=== PATIENT | male | born 1955 | race African-American/Black ===

== ENCOUNTER → 2018-12-11 09:52 | Outpatient (CLI) | payer OTHER, SELFPAY ==
--- NOTE | 2018-12-11 | DI.RAD.S_ITS ---
PROCEDURE: XR CHEST 2V INDICATIONS: shortness of breathe TECHNIQUE: 2 views of the chest were acquired. COMPARISON: None. FINDINGS: Surgical changes and devices: None. Lungs and pleura: Lungs are clear. No pleural effusions or pneumothorax. Mediastinum: Mediastinal contours are normal. Heart size is normal. Bones and chest wall: No suspicious bony abnormalities. Soft tissues appear unremarkable. IMPRESSION: No acute cardiopulmonary disease. Dictated by: Jason Rubin M.D. on 12/11/2018 at 11:07 Approved by: Jason Rubin M.D. on 12/11/2018 at 11:15
== END ==
LOC: RAD 10:08
PROVIDERS: Visit Provider Nurse Practitioner
DX: R06.02 Shortness of breath (principal)
CPT/HCPCS: 71046

== ENCOUNTER 2021-03-11 12:20 | Emergency (ER) | payer OTHER, SELFPAY ==
[2021-03-11] VITALS (42 sets, daily range): BP systolic 124–200; BP diastolic 61–107; PULSE 84–120; RESP 17–48; TEMP 36.8–37; O2SAT 82–100
--- NOTE | 2021-03-11 12:38 | ED.GENADULT ---
HPI - General Adult <Cabrera Jha DO - Last Filed: 03/12/21 07:06> General Chief complaint: Shortness of Breath/Dyspnea Stated complaint: SOB Time Seen by Provider: 03/11/21 12:31 Source: patient Mode of arrival: EMS History of Present Illness HPI narrative: Patient is a 65-year-old male. History of COPD and also has been. Not on home oxygen at baseline who states that last evening he had a relatively sudden onset of shortness of breath. No chest pain. Symptoms worsened overnight. He contacted his girlfriend this morning who contacted EMS. He did receive nebulizers prior to arrival. Was hypoxic to the upper 80s/low 90s on room air when EMS arrived and was in the upper 90s while receiving the DuoNeb in route. Patient denies any lower extremity swelling. No abdominal pain. No recent travel. No cough. Related Data Allergies Allergy/AdvReac Type Severity Reaction Status Date / Time No Known Drug Allergies Allergy Verified 03/11/21 12:39 Review of Systems <DO Ania Troy Last Filed: 03/12/21 07:06> Constitutional Constitutional: Denies fever(s) and Denies headache(s) ENT Ears, Nose, Mouth, and Throat: Denies headache(s) Cardiovascular Cardiovascular: Denies chest pain Respiratory Respiratory: Reports as per HPI Gastrointestinal Gastrointestinal: Reports system reviewed and no additional complaints, except as documented Genitourinary Genitourinary: Reports system reviewed and no additional complaints, except as documented Musculoskeletal Musculoskeletal: Reports system reviewed and no additional complaints, except as documented and Reports as per HPI Integumentary/Breasts Skin/Breast: Reports system reviewed and no additional complaints, except as documented Neurologic Neurologic: Denies headache(s) Endocrine Endocrine: Reports system reviewed and no additional complaints, except as documented Hematologic/Lymphatic On Anticoagulants: No Allergic/Immunologic Allergic/Immunologic: Reports system reviewed and no additional complaints, except as documented Patient History <DO Ania Troy Last Filed: 03/12/21 07:06> Medical History Asthma COPD (chronic obstructive pulmonary disease) Social History (Updated 03/11/21 @ 14:03 by Cabrera Jha DO) lives independently: Yes Exam <DO Ania Troy Last Filed: 03/12/21 07:06> Initial Vital Signs Initial Vital Signs: Vital Signs Temperature 98.6 F 03/11/21 12:20 Pulse Rate 120 H 03/11/21 12:20 Respiratory Rate 36 H 03/11/21 12:20 Blood Pressure 200/107 H 03/11/21 12:20 Pulse Oximetry 82 L 03/11/21 12:20 Const General: cooperative and ill appearing [facility] Head: normal to inspection and normocephalic Eyes General: appearance normal, both eyes and all related structures Resp Effort & Inspection: labored, respiratory distress, no retractions and tachypneic Auscultation: rales and wheezes Cardio Rate: tachycardic Rhythm: regular rhythm GI Palpation: soft Skin General: no rashes or lesions noted Neuro General: patient alert, patient awake, patient oriented x3 and moves all extremities Extrem General: normal to inspection and capillary refill normal Psych Appearance: grossly normal <Geri Espinoza DO - Last Filed: 03/12/21 03:29> Initial Vital Signs Initial Vital Signs: Vital Signs Temperature 98.6 F 03/11/21 12:20 Pulse Rate 120 H 03/11/21 12:20 Respiratory Rate 36 H 03/11/21 12:20 Blood Pressure 200/107 H 03/11/21 12:20 Pulse Oximetry 82 L 03/11/21 12:20 Course <Cabrera Jha DO - Last Filed: 03/12/21 07:06> Orders Ordered: Discontinued Medications Albuterol (Albuterol 2.5 Mg/3 Ml Neb (Adult)) 20 mg INH NOW ONE Stop: 03/11/21 12:43 Last Admin: 03/11/21 13:56 Dose: 20 mg Documented by: AGUSTINA Albuterol/Ipratropium (Albuterol/Ipratropium 3 Ml Ampul) 3 ml INH Q20M [facility] Stop: 03/11/21 14:26 Last Admin: 03/11/21 19:03 Dose: Not Given Documented by: Admin: 03/11/21 19:02 Dose: Not Given Documented by: Admin: 03/11/21 13:58 Dose: 3 ml Documented by: AGUSTINA Albuterol/Ipratropium (Albuterol/Ipratropium 3 Ml Ampul) 3 ml INH NOW ONE Stop: 03/11/21 20:59 Last Admin: 03/11/21 21:00 Dose: 3 ml Documented by: JUAN Aspirin (Aspirin 325 Mg Tablet) 325 mg PO NOW ONE Stop: 03/11/21 13:45 Last Admin: 03/11/21 14:03 Dose: 325 mg Documented by: ENRIQUE Clopidogrel Bisulfate (Clopidogrel 75 Mg Tablet) 300 mg PO NOW ONE Stop: 03/11/21 17:59 Last Admin: 03/11/21 18:07 Dose: 300 mg Documented by: RULA Furosemide (Furosemide 40 Mg/4 Ml Vial) 40 mg IV NOW ONE Stop: 03/11/21 13:44 Last Admin: 03/11/21 13:49 Dose: 40 mg Documented by: ENRIQUE Furosemide (Furosemide 40 Mg/4 Ml Vial) 40 mg IV NOW ONE Stop: 03/11/21 20:58 Last Admin: 03/11/21 21:08 Dose: 40 mg Documented by: JC Heparin Sodium (Porcine) (Heparin 5,000 Unit/Ml Vial) 5,000 unit IV NOW ONE Stop: 03/11/21 13:44 Last Admin: 03/11/21 13:49 Dose: 5,000 unit Documented by: ENRIQUE Sodium Chloride (Normal Saline 0.9%) 1,000 mls @ 100 mls/hr IV CONT [facility] Last Infusion: 03/11/21 16:53 Dose: 100 mls/hr Documented by: Infusion: 03/11/21 14:30 Dose: 20 mls/hr Documented by: Admin: 03/11/21 13:00 Dose: 100 mls/hr Documented by: RONALD Magnesium Sulfate (Magnesium Sulfate) 2 gm in 50 mls @ 25 mls/hr IV NOW ONE Stop: 03/11/21 14:38 Last Infusion: 03/11/21 14:30 Dose: 0 mls/hr Documented by: ENRIQUE Cosigned by: SABRINA Infusion: 03/11/21 13:57 Dose: 75 mls/hr Documented by: ENRIQUE Cosigned by: SABRINA Admin: 03/11/21 12:59 Dose: 25 mls/hr Documented by: RONALD Cosigned by: RULA Heparin Sodium/Dextrose (Heparin Drip) 25,000 unit in 500 mls @ 20 mls/hr IV CONT BLAZE; Protocol Last Titration: 03/11/21 20:33 Dose: 950 units/hr, 19 mls/hr Documented by: Admin: 03/11/21 13:49 Dose: 1,000 units/hr, 20 mls/hr Documented by: ENRIQUE Methylprednisolone (Methylprednisolone 125 Mg/2 Ml Vial) 125 mg IV NOW ONE Stop: 03/11/21 12:40 Last Admin: 03/11/21 13:00 Dose: 125 mg Documented by: RONALD Ondansetron HCl (Ondansetron 4 Mg/2 Ml Inj) 4 mg IV NOW ONE Stop: 03/11/21 17:13 Last Admin: 03/11/21 17:20 Dose: 4 mg Documented by: SABRINA Terbutaline Sulfate (Terbutaline 1 Mg/Ml Vial) 0.25 mg SUBCUT NOW ONE Stop: 03/11/21 13:47 Last Admin: 03/11/21 14:30 Dose: 0.25 mg Documented by: SABRINA Vital Signs Vital signs: Vital Signs - 8 hr 03/11/21 19:30 03/11/21 19:38 03/11/21 19:45 Pulse Rate 86 96 H 91 H Respiratory Rate 17 18 26 H Blood Pressure 144/79 H 131/61 Pulse Oximetry 97 99 92 03/11/21 20:00 03/11/21 20:15 03/11/21 20:30 Pulse Rate 92 H 88 96 H Respiratory Rate 25 H 32 H 29 H Blood Pressure 137/64 134/66 Pulse Oximetry 92 89 L 93 03/11/21 20:31 03/11/21 21:03 Pulse Rate 95 H 86 Respiratory Rate 43 H 24 Blood Pressure 155/86 H Pulse Oximetry 92 94 <Geri Espinoza DO - Last Filed: 03/12/21 03:29> Orders Ordered: Discontinued Medications Albuterol (Albuterol 2.5 Mg/3 Ml Neb (Adult)) 20 mg INH NOW ONE Stop: 03/11/21 12:43 Last Admin: 03/11/21 13:56 Dose: 20 mg Documented by: AGUSTINA Albuterol/Ipratropium (Albuterol/Ipratropium 3 Ml Ampul) 3 ml INH Q20M BLAZE Stop: 03/11/21 14:26 Last Admin: 03/11/21 19:03 Dose: Not Given Documented by: Admin: 03/11/21 19:02 Dose: Not Given Documented by: Admin: 03/11/21 13:58 Dose: 3 ml Documented by: AGUSTINA Albuterol/Ipratropium (Albuterol/Ipratropium 3 Ml Ampul) 3 ml INH NOW ONE Stop: 03/11/21 20:59 Last Admin: 03/11/21 21:00 Dose: 3 ml Documented by: JUAN Aspirin (Aspirin 325 Mg Tablet) 325 mg PO NOW ONE Stop: 03/11/21 13:45 Last Admin: 03/11/21 14:03 Dose: 325 mg Documented by: ENRIQUE Clopidogrel Bisulfate (Clopidogrel 75 Mg Tablet) 300 mg PO NOW ONE Stop: 03/11/21 17:59 Last Admin: 03/11/21 18:07 Dose: 300 mg Documented by: RULA Furosemide (Furosemide 40 Mg/4 Ml Vial) 40 mg IV NOW ONE Stop: 03/11/21 13:44 Last Admin: 03/11/21 13:49 Dose: 40 mg Documented by: ENRIQUE Furosemide (Furosemide 40 Mg/4 Ml Vial) 40 mg IV NOW ONE Stop: 03/11/21 20:58 Last Admin: 03/11/21 21:08 Dose: 40 mg Documented by: JC Heparin Sodium (Porcine) (Heparin 5,000 Unit/Ml Vial) 5,000 unit IV NOW ONE Stop: 03/11/21 13:44 Last Admin: 03/11/21 13:49 Dose: 5,000 unit Documented by: ENRIQUE Sodium Chloride (Normal Saline 0.9%) 1,000 mls @ 100 mls/hr IV CONT BLAZE Last Infusion: 03/11/21 16:53 Dose: 100 mls/hr Documented by: Infusion: 03/11/21 14:30 Dose: 20 mls/hr Documented by: Admin: 03/11/21 13:00 Dose: 100 mls/hr Documented by: RONALD Magnesium Sulfate (Magnesium Sulfate) 2 gm in 50 mls @ 25 mls/hr IV NOW ONE Stop: 03/11/21 14:38 Last Infusion: 03/11/21 14:30 Dose: 0 mls/hr Documented by: ENRIQUE Cosigned by: SABRINA Infusion: 03/11/21 13:57 Dose: 75 mls/hr Documented by: ENRIQUE Cosigned by: SABRINA Admin: 03/11/21 12:59 Dose: 25 mls/hr Documented by: RONALD Cosigned by: RULA Heparin Sodium/Dextrose (Heparin Drip) 25,000 unit in 500 mls @ 20 mls/hr IV CONT BLAZE; Protocol Last Titration: 03/11/21 20:33 Dose: 950 units/hr, 19 mls/hr Documented by: Admin: 03/11/21 13:49 Dose: 1,000 units/hr, 20 mls/hr Documented by: ENRIQUE Methylprednisolone (Methylprednisolone 125 Mg/2 Ml Vial) 125 mg IV NOW ONE Stop: 03/11/21 12:40 Last Admin: 03/11/21 13:00 Dose: 125 mg Documented by: ORNALD Ondansetron HCl (Ondansetron 4 Mg/2 Ml Inj) 4 mg IV NOW ONE Stop: 03/11/21 17:13 Last Admin: 03/11/21 17:20 Dose: 4 mg Documented by: SABRINA Terbutaline Sulfate (Terbutaline 1 Mg/Ml Vial) 0.25 mg SUBCUT NOW ONE Stop: 03/11/21 13:47 Last Admin: 03/11/21 14:30 Dose: 0.25 mg Documented by: SABRINA Vital Signs Vital signs: Vital Signs - 8 hr 03/11/21 19:30 03/11/21 19:38 03/11/21 19:45 Pulse Rate 86 96 H 91 H Respiratory Rate 17 18 26 H Blood Pressure 144/79 H 131/61 Pulse Oximetry 97 99 92 03/11/21 20:00 03/11/21 20:15 03/11/21 20:30 Pulse Rate 92 H 88 96 H Respiratory Rate 25 H 32 H 29 H Blood Pressure 137/64 134/66 Pulse Oximetry 92 89 L 93 03/11/21 20:31 03/11/21 21:03 Pulse Rate 95 H 86 Respiratory Rate 43 H 24 Blood Pressure 155/86 H Pulse Oximetry 92 94 Medical Decision Making <Cabrera Jha DO - Last Filed: 03/12/21 07:06> Lab Data Lab results reviewed: Yes I reviewed the patient's lab results. Result diagrams: 03/11/21 12:30 03/11/21 12:30 Labs: Lab Results 03/11/21 03/11/21 03/11/21 Range/Units 12:30 12:30 12:30 WBC 10.9 (4.5-11.0) X10^3/uL RBC 4.39 L (4.5-5.9) X10^6/uL Hgb 14.3 (13.5-17.5) g/dL Hct 43.4 (41-53) % MCV 99.0 (80-100) fL MCH 32.6 (26-34) PG MCHC 33.0 (30-36) % RDW 14.2 (11.6-14.8) % Plt Count 316 (150-400) X10^3/uL Neut % (Auto) 83.9 H (50-75) % Lymph % (Auto) 12.3 L (25-40) % Banks % (Auto) 3.5 (3-14) % Eos % (Auto) 0.0 L (2-4) % Baso % (Auto) 0.3 (0-2) % Neut # (Auto) 9100 H (8169-0425) /uL Lymph # (Auto) 1300 (9660-6971) /uL Banks # (Auto) 400 (0-900) /uL Eos # (Auto) 0 (0-450) /uL Baso # (Auto) 0 (0-100) /uL PT (10.1-12.7) SECONDS INR (0.9-1.3) APTT (26.4-36.2) SECONDS Sodium 137 (137-145) mmol/L Potassium 5.2 H (3.4-5.1) mmol/L Chloride 104 (98-107) mmol/L Carbon Dioxide 21 L (22-32) mmol/L BUN 9 (9-20) mg/dL Creatinine 0.83 (0.66-1.25) mg/dL Estimated GFR > 60.0 (>60) mL/min BUN/Creatinine Ratio 10.8 (6-22) Glucose 245 H (80-110) mg/dL Lactate 2.8 H (0.7-2.1) mmol/L Calcium 8.8 (8.4-10.2) mg/dL Total Bilirubin 1.6 H (0.2-1.3) mg/dL AST 100 H (17-59) IU/L ALT 35 (<50) IU/L Alkaline Phosphatase 71 (38-126) U/L Total Creatine Kinase (55-170) U/L CK-MB (CK-2) (<2.37) ng/mL CK-MB (CK-2) Rel Index (1.5-5.0) % Troponin I (0.01-0.034) ng/mL NT-Pro-B Natriuret Pep (<125) pg/mL Total Protein 8.7 H (6.3-8.2) g/dL Albumin 4.9 (3.5-5.0) g/dL Globulin 3.8 (1.7-4.1) g/dL Albumin/Globulin Ratio 1.3 (1.0-2.8) Procalcitonin (<0.5) ng/mL SARS-CoV-2 (PCR) (Negative) 03/11/21 03/11/21 03/11/21 Range/Units 12:30 12:30 12:30 WBC (4.5-11.0) X10^3/uL RBC (4.5-5.9) X10^6/uL Hgb (13.5-17.5) g/dL Hct (41-53) % MCV (80-100) fL MCH (26-34) PG MCHC (30-36) % RDW (11.6-14.8) % Plt Count (150-400) X10^3/uL Neut % (Auto) (50-75) % Lymph % (Auto) (25-40) % Banks % (Auto) (3-14) % Eos % (Auto) (2-4) % Baso % (Auto) (0-2) % Neut # (Auto) (8737-8306) /uL Lymph # (Auto) (9982-4050) /uL Banks # (Auto) (0-900) /uL Eos # (Auto) (0-450) /uL Baso # (Auto) (0-100) /uL PT (10.1-12.7) SECONDS INR (0.9-1.3) APTT (26.4-36.2) SECONDS Sodium (137-145) mmol/L Potassium (3.4-5.1) mmol/L Chloride (98-107) mmol/L Carbon Dioxide (22-32) mmol/L BUN (9-20) mg/dL Creatinine (0.66-1.25) mg/dL Estimated GFR (>60) mL/min BUN/Creatinine Ratio (6-22) Glucose (80-110) mg/dL Lactate (0.7-2.1) mmol/L Calcium (8.4-10.2) mg/dL Total Bilirubin (0.2-1.3) mg/dL AST (17-59) IU/L ALT (<50) IU/L Alkaline Phosphatase (38-126) U/L Total Creatine Kinase 1155 H (55-170) U/L CK-MB (CK-2) 15.30 H (<2.37) ng/mL CK-MB (CK-2) Rel Index 1.3 L (1.5-5.0) % Troponin I 3.830 H* (0.01-0.034) ng/mL NT-Pro-B Natriuret Pep 2490 H (<125) pg/mL Total Protein (6.3-8.2) g/dL Albumin (3.5-5.0) g/dL Globulin (1.7-4.1) g/dL Albumin/Globulin Ratio (1.0-2.8) Procalcitonin (<0.5) ng/mL SARS-CoV-2 (PCR) Negative Negative (Negative) 03/11/21 03/11/21 03/11/21 Range/Units 12:30 12:48 15:50 WBC (4.5-11.0) X10^3/uL RBC (4.5-5.9) X10^6/uL Hgb (13.5-17.5) g/dL Hct (41-53) % MCV (80-100) fL MCH (26-34) PG MCHC (30-36) % RDW (11.6-14.8) % Plt Count (150-400) X10^3/uL Neut % (Auto) (50-75) % Lymph % (Auto) (25-40) % Banks % (Auto) (3-14) % Eos % (Auto) (2-4) % Baso % (Auto) (0-2) % Neut # (Auto) (3221-5456) /uL Lymph # (Auto) (2568-2510) /uL Banks # (Auto) (0-900) /uL Eos # (Auto) (0-450) /uL Baso # (Auto) (0-100) /uL PT 11.6 (10.1-12.7) SECONDS INR 1.0 (0.9-1.3) APTT 29 (26.4-36.2) SECONDS Sodium (137-145) mmol/L Potassium (3.4-5.1) mmol/L Chloride (98-107) mmol/L Carbon Dioxide (22-32) mmol/L BUN (9-20) mg/dL Creatinine (0.66-1.25) mg/dL Estimated GFR (>60) mL/min BUN/Creatinine Ratio (6-22) Glucose (80-110) mg/dL Lactate 5.4 H* (0.7-2.1) mmol/L Calcium (8.4-10.2) mg/dL Total Bilirubin (0.2-1.3) mg/dL AST (17-59) IU/L ALT (<50) IU/L Alkaline Phosphatase (38-126) U/L Total Creatine Kinase (55-170) U/L CK-MB (CK-2) (<2.37) ng/mL CK-MB (CK-2) Rel Index (1.5-5.0) % Troponin I (0.01-0.034) ng/mL NT-Pro-B Natriuret Pep (<125) pg/mL Total Protein (6.3-8.2) g/dL Albumin (3.5-5.0) g/dL Globulin (1.7-4.1) g/dL Albumin/Globulin Ratio (1.0-2.8) Procalcitonin 0.07 (<0.5) ng/mL SARS-CoV-2 (PCR) (Negative) 03/11/21 03/11/21 03/11/21 Range/Units 18:30 18:30 19:48 WBC (4.5-11.0) X10^3/uL RBC (4.5-5.9) X10^6/uL Hgb (13.5-17.5) g/dL Hct (41-53) % MCV (80-100) fL MCH (26-34) PG MCHC (30-36) % RDW (11.6-14.8) % Plt Count (150-400) X10^3/uL Neut % (Auto) (50-75) % Lymph % (Auto) (25-40) % Banks % (Auto) (3-14) % Eos % (Auto) (2-4) % Baso % (Auto) (0-2) % Neut # (Auto) (7401-1441) /uL Lymph # (Auto) (0197-7259) /uL Banks # (Auto) (0-900) /uL Eos # (Auto) (0-450) /uL Baso # (Auto) (0-100) /uL PT (10.1-12.7) SECONDS INR (0.9-1.3) APTT 85 H* D (26.4-36.2) SECONDS Sodium (137-145) mmol/L Potassium (3.4-5.1) mmol/L Chloride (98-107) mmol/L Carbon Dioxide (22-32) mmol/L BUN (9-20) mg/dL Creatinine (0.66-1.25) mg/dL Estimated GFR (>60) mL/min BUN/Creatinine Ratio (6-22) Glucose (80-110) mg/dL Lactate 4.9 H* (0.7-2.1) mmol/L Calcium (8.4-10.2) mg/dL Total Bilirubin (0.2-1.3) mg/dL AST (17-59) IU/L ALT (<50) IU/L Alkaline Phosphatase (38-126) U/L Total Creatine Kinase (55-170) U/L CK-MB (CK-2) (<2.37) ng/mL CK-MB (CK-2) Rel Index (1.5-5.0) % Troponin I 6.660 H* (0.01-0.034) ng/mL NT-Pro-B Natriuret Pep (<125) pg/mL Total Protein (6.3-8.2) g/dL Albumin (3.5-5.0) g/dL Globulin (1.7-4.1) g/dL Albumin/Globulin Ratio (1.0-2.8) Procalcitonin (<0.5) ng/mL SARS-CoV-2 (PCR) (Negative) Imaging Data Chest x-ray: Radiologist's Impression: [address] [address] XRay Report Signed Patient: Ron Johnston MR#: [id number] : 1955 Acct:[id number] Age/Sex: 65 / M Date of Service: 03/11/21 Loc: ED Accession Number: [id number] ?? Procedure: XR chest 1V Ordering Provider: Cabrera Jha D.O. PROCEDURE:? XR CHEST 1V ? INDICATIONS:? SOB ? TECHNIQUE:? One view of the chest was acquired.? ? COMPARISON:? [facility], , XR CHEST 2V, 12/11/2018, 10:35. ? FINDINGS:? ? Surgical changes and devices:? None.? ? Lungs and pleura:? Diffuse interstitial opacities are present.? There is an opacity overlying the right apex. ? Mediastinum:? Mediastinal contours appear normal.? Heart size is enlarged. ? Bones and chest wall:? No suspicious bony lesions.? Overlying soft tissues appear unremarkable.? ? IMPRESSION:? ? 1. Diffuse interstitial opacities suspected to be related to edema.? Underlying areas of airspace disease such as pneumonia and/or atelectasis cannot be excluded. ? 2. Focal opacity overlying the right apex.? While this is suspected to be related to overlying structure, intrinsic pulmonary lesion cannot be excluded.? Recommend clinical correlation to external structure and repeat x-ray for further evaluation of this region as indicated. ? ? Dictated by: Cherelle Stern M.D. on 03/11/2021 at 13:13 ? ? Approved by: Cherelle Stern M.D. on 03/11/2021 at 13:14? CT scan - chest: Radiologist's Impression: [address] [address] [address] Scan Report Signed Patient: Ron Johnston MR#: [id number] : 1955 Acct:[id number] Age/Sex: 65 / M Date of Service: 03/11/21 Loc: ED Accession Number: [id number] ?? Procedure: CT angio chest PE protocol Ordering Provider: Cabrera Jha D.O. PROCEDURE:? CT ANGIO CHEST PE PROTOCOL ? INDICATIONS:? Chest pain, shortness of breath, tachycardia ? TECHNIQUE:? After the administration of intravenous contrast, 2 mm thick sections acquired from the pulmonary apices to the posterior costophrenic angles.? 3-dimensional maximum intensity projection (MIP) coronal and sagittal reformats were then acquired through the thorax.? For radiation dose reduction, the following was used:? automated exposure control, adjustment of mA and/or kV according to patient size.? ? COMPARISON:? [facility], CR, XR CHEST 1V, 03/11/2021, 12:39.? [facility], CR, XR CHEST 2V, 12/11/2018, 10:35. ? FINDINGS:? Image quality:? Excellent.? ? Pulmonary arteries:? Pulmonary arteries are normal in size, and demonstrate no intraluminal filling defects to suggest central pulmonary embolism.? ? Lungs and pleura:? There are diffuse reticular nodular infiltrates bilaterally.? There is interlobular and intralobular septal thickening.? Small pleural effusions are present bilaterally.? Moderate emphysema.? No pneumothorax.? Central and peripheral airways are patent.? ? Mediastinum:? Heart size is normal, without pericardial effusion.? There is mild mediastinal or hilar adenopathy.? Thoracic aorta is normal in caliber and enhancement.? Esophagus is normal in caliber.? Small hiatal hernia.? ? Bones and chest wall:? No suspicious bony lesions.? Ribs and thoracic spine appear intact throughout.? Thyroid gland is normal.? No axillary or supraclavicular adenopathy.? ? Abdomen:? Mild bilateral adrenal thickening.? No discrete adrenal mass.? ? IMPRESSION:? ? 1. No evidence for pulmonary embolism. 2. Bilateral reticular nodular infiltrates with interlobular and intralobular septal thickening.? Differential diagnoses include interstitial pneumonia and pulmonary edema.? Recommend clinical correlation. 3. Small pleural effusions bilaterally. 4.? Mild mediastinal and hilar lymphadenopathy, likely reactive. 5. Small hiatal hernia. ? ? The result was discussed with Dr. Jha. ? Dictated by: Jason Rubin M.D. on 03/11/2021 at 14:27 ? ? Approved by: Jason Rubin M.D. on 03/11/2021 at 15:14?? ECG Data Attestation: I personally reviewed and interpreted this ECG as follows: Interpretation: Sinus rhythm Ventricular rate 92 Right bundle-branch block Normal QRS QTC [address] T wave changes MDM Narrative Medical decision making narrative: Patient arrived in respiratory distress. No chest pain. Was started on a continuous nebulizer. Was given magnesium. Was given Solu-Medrol. Nonspecific changes on the EKG. During this time patient's respiratory status declined. He was then given terbutaline. Was placed on high-flow which did seem to help his respiratory status somewhat. CT scan of his chest is ordered given the presentation. No signs of pulmonary embolism. No signs of dissection. Troponin positive. BNP elevated. Was given Lasix. Started on heparin. Given aspirin. He does not have a white count. No definitive pneumonia on the chest x-ray. Procalcitonin is negative. Was not given antibiotics. His lactate did increase however he is afebrile. Not hypotensive. I feel that the elevated lactate is most likely related to his hypoxia and also his respiratory status and also his cardiovascular issues. Discussed the case with Cardiology at [facility] who states that patient should be transferred for further evaluation and treatment. Care turned over to Dr. Espinoza at change of shift for ultimate disposition. I did discuss the need for the transfer with the patient. He expressed understanding and agreement. <Geri Espinoza, DO - Last Filed: 03/12/21 03:29> Lab Data Labs: Lab Results 03/11/21 03/11/21 03/11/21 Range/Units 12:30 12:30 12:30 WBC 10.9 (4.5-11.0) X10^3/uL RBC 4.39 L (4.5-5.9) X10^6/uL Hgb 14.3 (13.5-17.5) g/dL Hct 43.4 (41-53) % MCV 99.0 (80-100) fL MCH 32.6 (26-34) PG MCHC 33.0 (30-36) % RDW 14.2 (11.6-14.8) % Plt Count 316 (150-400) X10^3/uL Neut % (Auto) 83.9 H (50-75) % Lymph % (Auto) 12.3 L (25-40) % Banks % (Auto) 3.5 (3-14) % Eos % (Auto) 0.0 L (2-4) % Baso % (Auto) 0.3 (0-2) % Neut # (Auto) 9100 H (1354-3163) /uL Lymph # (Auto) 1300 (2087-4838) /uL Banks # (Auto) 400 (0-900) /uL Eos # (Auto) 0 (0-450) /uL Baso # (Auto) 0 (0-100) /uL PT (10.1-12.7) SECONDS INR (0.9-1.3) APTT (26.4-36.2) SECONDS Sodium 137 (137-145) mmol/L Potassium 5.2 H (3.4-5.1) mmol/L Chloride 104 (98-107) mmol/L Carbon Dioxide 21 L (22-32) mmol/L BUN 9 (9-20) mg/dL Creatinine 0.83 (0.66-1.25) mg/dL Estimated GFR > 60.0 (>60) mL/min BUN/Creatinine Ratio 10.8 (6-22) Glucose 245 H (80-110) mg/dL Lactate 2.8 H (0.7-2.1) mmol/L Calcium 8.8 (8.4-10.2) mg/dL Total Bilirubin 1.6 H (0.2-1.3) mg/dL AST 100 H (17-59) IU/L ALT 35 (<50) IU/L Alkaline Phosphatase 71 (38-126) U/L Total Creatine Kinase (55-170) U/L CK-MB (CK-2) (<2.37) ng/mL CK-MB (CK-2) Rel Index (1.5-5.0) % Troponin I (0.01-0.034) ng/mL NT-Pro-B Natriuret Pep (<125) pg/mL Total Protein 8.7 H (6.3-8.2) g/dL Albumin 4.9 (3.5-5.0) g/dL Globulin 3.8 (1.7-4.1) g/dL Albumin/Globulin Ratio 1.3 (1.0-2.8) Procalcitonin (<0.5) ng/mL SARS-CoV-2 (PCR) (Negative) 03/11/21 03/11/21 03/11/21 Range/Units 12:30 12:30 12:30 WBC (4.5-11.0) X10^3/uL RBC (4.5-5.9) X10^6/uL Hgb (13.5-17.5) g/dL Hct (41-53) % MCV (80-100) fL MCH (26-34) PG MCHC (30-36) % RDW (11.6-14.8) % Plt Count (150-400) X10^3/uL Neut % (Auto) (50-75) % Lymph % (Auto) (25-40) % Banks % (Auto) (3-14) % Eos % (Auto) (2-4) % Baso % (Auto) (0-2) % Neut # (Auto) (9715-0396) /uL Lymph # (Auto) (3795-6637) /uL Banks # (Auto) (0-900) /uL Eos # (Auto) (0-450) /uL Baso # (Auto) (0-100) /uL PT (10.1-12.7) SECONDS INR (0.9-1.3) APTT (26.4-36.2) SECONDS Sodium (137-145) mmol/L Potassium (3.4-5.1) mmol/L Chloride (98-107) mmol/L Carbon Dioxide (22-32) mmol/L BUN (9-20) mg/dL Creatinine (0.66-1.25) mg/dL Estimated GFR (>60) mL/min BUN/Creatinine Ratio (6-22) Glucose (80-110) mg/dL Lactate (0.7-2.1) mmol/L Calcium (8.4-10.2) mg/dL Total Bilirubin (0.2-1.3) mg/dL AST (17-59) IU/L ALT (<50) IU/L Alkaline Phosphatase (38-126) U/L Total Creatine Kinase 1155 H (55-170) U/L CK-MB (CK-2) 15.30 H (<2.37) ng/mL CK-MB (CK-2) Rel Index 1.3 L (1.5-5.0) % Troponin I 3.830 H* (0.01-0.034) ng/mL NT-Pro-B Natriuret Pep 2490 H (<125) pg/mL Total Protein (6.3-8.2) g/dL Albumin (3.5-5.0) g/dL Globulin (1.7-4.1) g/dL Albumin/Globulin Ratio (1.0-2.8) Procalcitonin (<0.5) ng/mL SARS-CoV-2 (PCR) Negative Negative (Negative) 03/11/21 03/11/21 03/11/21 Range/Units 12:30 12:48 15:50 WBC (4.5-11.0) X10^3/uL RBC (4.5-5.9) X10^6/uL Hgb (13.5-17.5) g/dL Hct (41-53) % MCV (80-100) fL MCH (26-34) PG MCHC (30-36) % RDW (11.6-14.8) % Plt Count (150-400) X10^3/uL Neut % (Auto) (50-75) % Lymph % (Auto) (25-40) % Banks % (Auto) (3-14) % Eos % (Auto) (2-4) % Baso % (Auto) (0-2) % Neut # (Auto) (0524-1145) /uL Lymph # (Auto) (4648-7182) /uL Banks # (Auto) (0-900) /uL Eos # (Auto) (0-450) /uL Baso # (Auto) (0-100) /uL PT 11.6 (10.1-12.7) SECONDS INR 1.0 (0.9-1.3) APTT 29 (26.4-36.2) SECONDS Sodium (137-145) mmol/L Potassium (3.4-5.1) mmol/L Chloride (98-107) mmol/L Carbon Dioxide (22-32) mmol/L BUN (9-20) mg/dL Creatinine (0.66-1.25) mg/dL Estimated GFR (>60) mL/min BUN/Creatinine Ratio (6-22) Glucose (80-110) mg/dL Lactate 5.4 H* (0.7-2.1) mmol/L Calcium (8.4-10.2) mg/dL Total Bilirubin (0.2-1.3) mg/dL AST (17-59) IU/L ALT (<50) IU/L Alkaline Phosphatase (38-126) U/L Total Creatine Kinase (55-170) U/L CK-MB (CK-2) (<2.37) ng/mL CK-MB (CK-2) Rel Index (1.5-5.0) % Troponin I (0.01-0.034) ng/mL NT-Pro-B Natriuret Pep (<125) pg/mL Total Protein (6.3-8.2) g/dL Albumin (3.5-5.0) g/dL Globulin (1.7-4.1) g/dL Albumin/Globulin Ratio (1.0-2.8) Procalcitonin 0.07 (<0.5) ng/mL SARS-CoV-2 (PCR) (Negative) 03/11/21 03/11/21 03/11/21 Range/Units 18:30 18:30 19:48 WBC (4.5-11.0) X10^3/uL RBC (4.5-5.9) X10^6/uL Hgb (13.5-17.5) g/dL Hct (41-53) % MCV (80-100) fL MCH (26-34) PG MCHC (30-36) % RDW (11.6-14.8) % Plt Count (150-400) X10^3/uL Neut % (Auto) (50-75) % Lymph % (Auto) (25-40) % [place] % (Auto) (3-14) % Eos % (Auto) (2-4) % Baso % (Auto) (0-2) % Neut # (Auto) (1285-1330) /uL Lymph # (Auto) (1200-0432) /uL [place] # (Auto) (0-900) /uL Eos # (Auto) (0-450) /uL Baso # (Auto) (0-100) /uL PT (10.1-12.7) SECONDS INR (0.9-1.3) APTT 85 H* D (26.4-36.2) SECONDS Sodium (137-145) mmol/L Potassium (3.4-5.1) mmol/L Chloride (98-107) mmol/L Carbon Dioxide (22-32) mmol/L BUN (9-20) mg/dL Creatinine (0.66-1.25) mg/dL Estimated GFR (>60) mL/min BUN/Creatinine Ratio (6-22) Glucose (80-110) mg/dL Lactate 4.9 H* (0.7-2.1) mmol/L Calcium (8.4-10.2) mg/dL Total Bilirubin (0.2-1.3) mg/dL AST (17-59) IU/L ALT (<50) IU/L Alkaline Phosphatase (38-126) U/L Total Creatine Kinase (55-170) U/L CK-MB (CK-2) (<2.37) ng/mL CK-MB (CK-2) Rel Index (1.5-5.0) % Troponin I 6.660 H* (0.01-0.034) ng/mL NT-Pro-B Natriuret Pep (<125) pg/mL Total Protein (6.3-8.2) g/dL Albumin (3.5-5.0) g/dL Globulin (1.7-4.1) g/dL Albumin/Globulin Ratio (1.0-2.8) Procalcitonin (<0.5) ng/mL SARS-CoV-2 (PCR) (Negative) ECG Data Interpretation: Sinus rhythm Ventricular rate 92 Right bundle-branch block Normal QRS QTC [address] T wave changes EKG 2. BOTNICK Sinus rhythm rate 88 SC interval 144 QRS 130 QTC 527, right bundle-branch block similar to previous EKG no obvious ST depression or ST elevation or T-wave inversions MDM Narrative Medical decision making narrative: Patient arrived in respiratory distress. No chest pain. Was started on a continuous nebulizer. Was given magnesium. Was given Solu-Medrol. Nonspecific changes on the EKG. During this time patient's respiratory status declined. He was then given terbutaline. Was placed on high-flow which did seem to help his respiratory status somewhat. CT scan of his chest is ordered given the presentation. No signs of pulmonary embolism. No signs of dissection. Troponin positive. BNP elevated. Was given Lasix. Started on heparin. Given aspirin. He does not have a white count. No definitive pneumonia on the chest x-ray. Procalcitonin is negative. Was not given antibiotics. His lactate did increase however he is afebrile. Not hypotensive. I feel that the elevated lactate is most likely related to his hypoxia and also his respiratory status and also his cardiovascular issues. Discussed the case with Cardiology at [facility] who states that patient should be transferred for further evaluation and treatment. Care turned over to Dr. Espinoza at change of shift for ultimate disposition. I did discuss the need for the transfer with the patient. He expressed understanding and agreement. Patient signed out to me by Dr. Jha. Seen and evaluated patient myself. Patient remained on high-flow nasal cannula 50%. He has urinated 1700 cc from 40 mg of Lasix at 1:45 a.m.. He states his breathing is not much improved although he does not appear in acute respiratory distress at this time. He was aggressively treated for COPD/asthma. Troponin found to be elevated at 3.5 with an elevated BNP of 2400. He continues to deny any chest pain. Initial lactate 2.8 increased to 5.4 thought to be secondary to hypoxia rather than sepsis. No fever or leukocytosis. It has improved and is now 4.9. Repeat troponin is now 6.6, no EKG changes 1848-Dr. Burgos, hospitalist at [facility] and reactive patient is going to test results and accepts the patient. Patient has been titrated off high-flow and is now on 5 L nasal cannula rest comfortably. 2100 patient started complaining of increasing shortness of breath satting 92-94% on 5 L. Increased wheezing. He has not urinated for some time now. He is given DuoNeb and Lasix. EMS will be here at 11:00 p.m. he was put on high-flow temporarily until EMS arrived 2214-overall breathing much better after Lasix and DuoNeb. Back on nasal cannula doing well. Critical Care Time <Cabrera Jha, DO - Last Filed: 03/12/21 07:06> Critical Care Time Critical Care Time: Yes Total Critical Care Time: 45 Attestation: The high probability of a clinically significant, sudden or life threatening deterioration of the cardiovascular, respiratory system(s) required my full and direct attention, intervention and personal management. The aggregate critical care time was 45 minutes. This time is in addition to time spent performing reported procedures but includes the following: [x] Data Review and interpretation [x] Patient assessment and monitoring of vital signs [x] Documentation [x] Medication orders and management Discharge Plan Departure Patient Disposition: [facility] Clinical Impression: Non-ST elevation DE (NSTEMI), COPD exacerbation, Acute respiratory distress
--- NOTE | 2021-03-11 12:40 | DI.RAD.S_ITS ---
PROCEDURE: XR CHEST 1V INDICATIONS: SOB TECHNIQUE: One view of the chest was acquired. COMPARISON: [facility], CR, XR CHEST 2V, 12/11/2018, 10:35. FINDINGS: Surgical changes and devices: None. Lungs and pleura: Diffuse interstitial opacities are present. There is an opacity overlying the right apex. Mediastinum: Mediastinal contours appear normal. Heart size is enlarged. Bones and chest wall: No suspicious bony lesions. Overlying soft tissues appear unremarkable. IMPRESSION: 1. Diffuse interstitial opacities suspected to be related to edema. Underlying areas of airspace disease such as pneumonia and/or atelectasis cannot be excluded. 2. Focal opacity overlying the right apex. While this is suspected to be related to overlying structure, intrinsic pulmonary lesion cannot be excluded. Recommend clinical correlation to external structure and repeat x-ray for further evaluation of this region as indicated. Dictated by: Cherelle Stern M.D. on 03/11/2021 at 13:13 Approved by: Cherelle Stern M.D. on 03/11/2021 at 13:14
[2021-03-11] MEDS: MAGNESIUM SULFATE 2 GM/50 ML PIGGYBACK IV (12:59)
[2021-03-11] MEDS: SODIUM CHLORIDE 0.9% 1,000 ML 100 ML IV (13:00)
[2021-03-11] MEDS: methylPREDNISolone 125 MG/2 ML VIAL IV (13:00)
[2021-03-11 13:08] LABS: Lactate (Lactic Acid) 2.8 mmol/L (0.7-2.1)
[2021-03-11 13:09] LABS: Albumin 4.9 g/dL (3.5-5.0); Albumin Globulin Ratio 1.3 (1.0-2.8); Alkaline Phosphatase 71 U/L (38-126); Aspartate Aminotransferase 100 IU/L (17-59); BUN Creatinine Ratio 10.8 (6-22); Bilirubin Total 1.6 mg/dL (0.2-1.3); Blood Urea Nitrogen 9 mg/dL (9-20); Calcium 8.8 mg/dL (8.4-10.2); Carbon Dioxide 21 mmol/L (22-32); Chloride 104 mmol/L (98-107); Estimated Glomerular Filt Rate > 60.0 mL/min (>60); Globulin 3.8 g/dL (1.7-4.1); Glucose 245 mg/dL (80-110); Potassium 5.2 mmol/L (3.4-5.1); Sodium 137 mmol/L (137-145); Total Protein 8.7 g/dL (6.3-8.2)
[2021-03-11 13:11] LABS: HEMOLYSIS 301 (0-50)
[2021-03-11 13:12] LABS: Creatine Kinase 1155 U/L (55-170)
[2021-03-11 13:14] LABS: Add Manual Diff / Slide Review NO; Basophils Absolute Auto 0 /uL (0-100); Basophils Percent Auto 0.3 % (0-2); Eosinophils Absolute Auto 0 /uL (0-450); Hematocrit 43.4 % (41-53); Hemoglobin 14.3 g/dL (13.5-17.5); Lymphocytes Absolute Auto 1300 /uL (1100-4500); Lymphocytes Percent Auto 12.3 % (25-40); Mean Corpuscular Hemoglobin 32.6 PG (26-34); Monocytes Absolute Auto 400 /uL (0-900); Monocytes Percent Auto 3.5 % (3-14); Neutrophils Absolute Auto 9100 /uL (1500-7000); Neutrophils Percent Auto 83.9 % (50-75); Platelet Count 316 X10^3/uL (150-400); Red Blood Cell Count 4.39 X10^6/uL (4.5-5.9); Red Cell Distribution Width 14.2 % (11.6-14.8); White Blood Cell Count 10.9 X10^3/uL (4.5-11.0)
[2021-03-11 13:17] LABS: COVID19 -Nasal RAPID Negative (Negative)
[2021-03-11 13:18] LABS: Alanine Aminotransferase 35 IU/L (<50)
[2021-03-11 13:24] LABS: NT-proBNP (BNP-Adult 18+) 2490 pg/mL (<125)
[2021-03-11 13:28] LABS: CKMB % Relative Index 1.3 % (1.5-5.0)
[2021-03-11 13:42] LABS: Prothrombin Time 11.6 SECONDS (10.1-12.7)
--- NOTE | 2021-03-11 13:43 | PC.NURSE ---
Pt states he had urinated on himself. Went to clean pt up and noticed his WOB had increased. notified.
[2021-03-11 13:44] LABS: PTT Partial Thromboplastin Tim 29 SECONDS (26.4-36.2)
[2021-03-11] MEDS: FUROSEMIDE 40 MG/4 ML VIAL IV ×2 (13:49→21:08)
[2021-03-11] MEDS: HEPARIN 5,000 UNIT/ML VIAL 5000 UNIT IV (13:49)
[2021-03-11] MEDS: HEPARIN DRIP 25,000 UNIT/500 ML IV.SOLN 20 UNIT IV (13:49)
[2021-03-11 13:54] LABS: COVID19 - ADMIT (NP swab/PCR) Negative (Negative)
[2021-03-11] MEDS: ALBUTEROL 2.5 MG/3 ML NEB (ADULT) 20 MG INH (13:56)
[2021-03-11] MEDS: ALBUTEROL/IPRATROPIUM 3 ML AMPUL INH ×2 (13:58→21:00)
--- NOTE | 2021-03-11 13:59 | DI.CT.S_ITS ---
PROCEDURE: CT ANGIO CHEST PE PROTOCOL INDICATIONS: Chest pain, shortness of breath, tachycardia TECHNIQUE: After the administration of intravenous contrast, 2 mm thick sections acquired from the pulmonary apices to the posterior costophrenic angles. 3-dimensional maximum intensity projection (MIP) coronal and sagittal reformats were then acquired through the thorax. For radiation dose reduction, the following was used: automated exposure control, adjustment of mA and/or kV according to patient size. COMPARISON: [facility], CR, XR CHEST 1V, 03/11/2021, 12:39. [facility], CR, XR CHEST 2V, 12/11/2018, 10:35. FINDINGS: Image quality: Excellent. Pulmonary arteries: Pulmonary arteries are normal in size, and demonstrate no intraluminal filling defects to suggest central pulmonary embolism. Lungs and pleura: There are diffuse reticular nodular infiltrates bilaterally. There is interlobular and intralobular septal thickening. Small pleural effusions are present bilaterally. Moderate emphysema. No pneumothorax. Central and peripheral airways are patent. Mediastinum: Heart size is normal, without pericardial effusion. There is mild mediastinal or hilar adenopathy. Thoracic aorta is normal in caliber and enhancement. Esophagus is normal in caliber. Small hiatal hernia. Bones and chest wall: No suspicious bony lesions. Ribs and thoracic spine appear intact throughout. Thyroid gland is normal. No axillary or supraclavicular adenopathy. Abdomen: Mild bilateral adrenal thickening. No discrete adrenal mass. IMPRESSION: 1. No evidence for pulmonary embolism. 2. Bilateral reticular nodular infiltrates with interlobular and intralobular septal thickening. Differential diagnoses include interstitial pneumonia and pulmonary edema. Recommend clinical correlation. 3. Small pleural effusions bilaterally. 4. Mild mediastinal and hilar lymphadenopathy, likely reactive. 5. Small hiatal hernia. The result was discussed with Dr. Jha. Dictated by: Jason Rubin M.D. on 03/11/2021 at 14:27 Approved by: Jason Rubin M.D. on 03/11/2021 at 15:14
--- NOTE | 2021-03-11 14:01 | PC.NURSE ---
Primary RN off floor, Pt's radio communication coordinator hayes advising pt needs to have incontinence care performed. on arrival into room pt stating i cant breathe and subcostal retractions and accessory muscle use. Dr Jha made aware and pt started on HFNC at 55% FiO2 and 48L/min by RT. Heparin bolus and infusion started per AUG. Pt taken to and from CT without complication. pt states he is feeling better. Lasix given and 600ml out within first hour. POA son Ron Jr [phone]
[2021-03-11] MEDS: ASPIRIN 325 MG TABLET PO (14:03)
--- NOTE | 2021-03-11 14:20 | RT ---
Called to Room 11, pt in severe resp distress. Dr. Jha at bedside and pt stated taking neb txs at home with no relief. Alb 20 mg/Ns ordered cont neb tx for one hour. Pt tammy chapa, rn and at bedside, states some relief
[2021-03-11] MEDS: TERBUTALINE 1 MG/ML VIAL 0.25 MG SUBCUT (14:30)
[2021-03-11 14:32] LABS: Procalcitonin 0.07 ng/mL (<0.5)
[2021-03-11 14:48] LABS: Reflexed Lactate in 2 Hours Y
--- NOTE | 2021-03-11 14:58 | PC.NURSE ---
Addendum entered by Michelle Lennon R.N. 03/11/21 16:37: 45 liters and 45 percent. states he feels much better. Original Note: pt is on high flow oxygen. appears more comfortable.
[2021-03-11 16:23] LABS: Lactate 2HR (Lactic Acid Rflx) 5.4 mmol/L (0.7-2.1)
[2021-03-11] MEDS: ONDANSETRON 4 MG/2 ML INJ IV (17:20)
[2021-03-11] MEDS: CLOPIDOGREL 75 MG TABLET 300 MG PO (18:07)
[2021-03-11 18:54] LABS: Lactate (Lactic Acid) 4.9 mmol/L (0.7-2.1)
[2021-03-11 20:32] LABS: PTT Partial Thromboplastin Tim 85 SECONDS (26.4-36.2)
[2021-03-11 20:34] LABS: Reflexed Lactate in 2 Hours Y
--- NOTE | 2021-03-11 21:16 | PC.NURSE ---
Pt had PTT drawn at 1947, results reported at 2030, per protocol, PTT of 85 required a decrease in drip by 50units/1ml per hours. Gtt rate adjusted at that time. Next draw due at 0 per protocol.
== END 2021-03-11 22:51 | disposition short-term general hospital (02) ==
PROVIDERS: Emergency Medicine; Emergency Provider Emergency Medicine
DX: I21.4 Non-ST elevation (NSTEMI) myocardial infarction (principal); J44.1 Chronic obstructive pulmonary disease with (acute) exacerbation; R06.03 Acute respiratory distress; R07.9 Chest pain, unspecified; R00.0 Tachycardia, unspecified; Z20.822 Contact with and (suspected) exposure to COVID-19
CPT/HCPCS: 36415; 71045; 71275; 80053; 82550; 82553; 83605; 83880; 84145; 84484; 85025; 85610; 85730; 87635; 93005; 94640; 96361; 96365; 96366; 96372; 96375; 96376; 99285; 99291; C9803; J1644; J1940; J2405; J2930; J3475; J7613

== ENCOUNTER 2021-09-12 14:30 | Emergency (ER) | payer OTHER, SELFPAY ==
[2021-09-12] VITALS (12 sets, daily range): BP systolic 140–169; BP diastolic 64–81; PULSE 59–74; RESP 17–20; TEMP 36.6; O2SAT 92–100; BMI 23.1
--- NOTE | 2021-09-12 14:50 | DI.RAD.S_ITS ---
PROCEDURE: XR CHEST 2V INDICATIONS: shortness of breath TECHNIQUE: 2 views of the chest were acquired. COMPARISON: [facility], CR, XR CHEST 1V, 03/11/2021, 12:39. [facility], CR, XR CHEST 1 VIEW, 03/13/2021, 11:14. FINDINGS: Surgical changes and devices: None. Lungs and pleura: Chronic interstitial pulmonary there is mild increased interstitial pulmonary appearance. Mediastinum: Mediastinal contours are normal. Heart size is normal. Bones and chest wall: No suspicious bony abnormalities. Soft tissues appear unremarkable. IMPRESSION: Mild increased interstitial pulmonary appearance. This could represent developing airspace disease such as pneumonia. Dictated by: Cherelle Stern M.D. on 09/12/2021 at 16:28 Approved by: Cherelle Stern M.D. on 09/12/2021 at 16:29
[2021-09-12 15:11] LABS: Add Manual Diff / Slide Review NO; Basophils Absolute Auto 100 /uL (0-100); Basophils Percent Auto 1.1 % (0-2); Eosinophils Absolute Auto 300 /uL (0-450); Eosinophils Percent Auto 5.2 % (2-4); Hematocrit 42.1 % (41-53); Hemoglobin 14.4 g/dL (13.5-17.5); Lymphocytes Absolute Auto 1400 /uL (1100-4500); Lymphocytes Percent Auto 27.2 % (25-40); Mean Corpuscular HGB Conc 34.1 % (30-36); Mean Corpuscular Hemoglobin 32.6 PG (26-34); Mean Corpuscular Volume 95.7 fL (80-100); Monocytes Absolute Auto 500 /uL (0-900); Monocytes Percent Auto 8.7 % (3-14); Neutrophils Absolute Auto 3000 /uL (1500-7000); Neutrophils Percent Auto 57.8 % (50-75); Platelet Count 305 X10^3/uL (150-400); White Blood Cell Count 5.3 X10^3/uL (4.5-11.0)
[2021-09-12 15:26] LABS: Alanine Aminotransferase 15 IU/L (<50); Albumin 4.5 g/dL (3.5-5.0); Albumin Globulin Ratio 1.2 (1.0-2.8); Alkaline Phosphatase 68 U/L (38-126); Aspartate Aminotransferase 36 IU/L (17-59); BUN Creatinine Ratio 10.5 (6-22); Bilirubin Total 0.4 mg/dL (0.2-1.3); Blood Urea Nitrogen 8 mg/dL (9-20); Calcium 8.8 mg/dL (8.4-10.2); Carbon Dioxide 27 mmol/L (22-32); Chloride 105 mmol/L (98-107); Creatine Kinase 491 U/L (55-170); Estimated Glomerular Filt Rate > 60.0 mL/min (>60); Globulin 3.9 g/dL (1.7-4.1); Glucose 128 mg/dL (80-110); HEMOLYSIS < 15 (0-50); Potassium 3.9 mmol/L (3.4-5.1); Sodium 139 mmol/L (137-145); Total Protein 8.4 g/dL (6.3-8.2)
[2021-09-12 15:27] LABS: Lactate (Lactic Acid) 1.1 mmol/L (0.7-2.1)
[2021-09-12] MEDS: ALBUTEROL 2.5 MG/3 ML NEB (ADULT) 5 MG INH (15:28)
[2021-09-12] MEDS: ALBUTEROL/IPRATROPIUM 3 ML AMPUL INH (15:28)
[2021-09-12 15:38] LABS: NT-proBNP (BNP-Adult 18+) 128 pg/mL (<125); Troponin I 0.026 ng/mL (0.01-0.034)
[2021-09-12 15:41] LABS: CKMB % Relative Index 0.8 % (1.5-5.0); Creatine Kinase MB 4.08 ng/mL (<2.37)
--- NOTE | 2021-09-12 15:53 | ED.SOB ---
HPI - SOB/Dyspnea General Chief Complaint: Shortness of Breath/Dyspnea Stated Complaint: Asthma/High BP Time Seen by Provider: 09/12/21 15:34 Source: patient Mode of arrival: Ambulatory History of Present Illness HPI Narrative: Patient is a 66-year-old male with history of COPD/asthma, coronary artery disease he is not on oxygen at presenting today with increasing shortness of breath. He says been going on for the last 3-4 days is. He does not feel like he is getting any relief from his nebulizer machine which he is using quite frequently at home. He does have some mild productive cough. But denies any fever. He actually does not have any chest discomfort except some mild tightness which she usually feels with asthma. He has stayed in the hospital previously but never intubated. He marijuana weekly. Related Data Home Medications Medication Instructions Recorded Confirmed amlodipine 10 mg tablet 10 mg PO DAILY 09/12/21 09/12/21 buprenorphine 8 mg-naloxone 2 mg 1 tab SUBLINGUAL DAILY 09/12/21 09/12/21 sublingual tablet lisinopril 20 mg tablet 20 mg PO DAILY 09/12/21 09/12/21 simvastatin 20 mg tablet 20 mg PO DAILY 09/12/21 09/12/21 tamsulosin 0.4 mg capsule (Flomax) 0.4 mg PO DAILY 09/12/21 09/12/21 Previous Rx's Medication Instructions Recorded albuterol sulfate 0.63 mg/3 mL 0.63 mg (3 mL) INHALATION QID PRN 09/12/21 solution for nebulization #75 ml albuterol sulfate 90 mcg/actuation 2 puff INHALATION Q4-6H PRN #8.5 09/12/21 aerosol inhaler gram prednisone 20 mg tablet 40 mg PO DAILY #10 tab 09/12/21 Allergies Allergy/AdvReac Type Severity Reaction Status Date / Time No Known Drug Allergies Allergy Verified 09/12/21 14:46 Review of Systems Review of Systems Narrative: GENERAL: Denies chills, fatigue, malaise, fever, sweats, travel HEENT: Denies sinus pain, ear pain, sore throat, difficulty swallowing, neck pain RESPIRATORY: See HPI CARDIOVASCULAR: Denies chest pain, palpitations, orthopnea, edema GASTROINTESTINAL: Denies nausea, vomiting, abdominal pain, diarrhea, constipation, melena. : Denies dysuria, frequency, incontinence, hematuria, urinary retention, flank pain. MUSCULOSKELETAL: Denies weakness, joint pain, or bony pain SKIN: No rash, no erythema, no pruritus NEUROLOGIC: Denies weakness, dizziness, headache, numbness, change in speech, confusion PSYCHIATRIC: No concerning psychosocial issues. 12 point review of systems is negative except for those stated above and HPI Patient History Medical History Asthma COPD (chronic obstructive pulmonary disease) Social History lives independently: Yes Smoking Status: Former smoker Smoking Status: Former smoker alcohol intake frequency: a few times a week Substance Use Type: marijuana Exam Initial Vital Signs Initial Vital Signs: Vital Signs Temperature 98 F 09/12/21 14:42 Pulse Rate 72 09/12/21 14:42 Respiratory Rate 17 09/12/21 14:42 Blood Pressure 169/78 H 09/12/21 14:42 Pulse Oximetry 95 09/12/21 14:42 GENERAL: Well-appearing 66-year-old and in no acute distress. HEENT: Head atraumatic,EOMI, pupils reactive, face symmetric, moist mucous membranes CARDIOVASCULAR: Regular rate and rhythm without murmurs, rubs or gallops. RESPIRATORY: After nebulizer speaks in full sentences but continues to have some slight expiratory wheezing no obvious respiratory distress no tachypnea ABDOMEN: Soft, nontender. Normoactive bowel sounds all 4 quadrants. No guarding or rebound. EXTREMITIES: Normal range of motion, no clubbing or edema. Neurovascularly intact NEUROLOGICAL: Alert and oriented x4.Normal gait and speech. SKIN: Warm, dry, no laceration, no petechiae, no rashes or lesions. Course Orders Ordered: ED Orders 09/12/21 14:50 XR chest 2V Stat Complete Blood Count AUTO DIFF Stat Comprehensive Metabolic Panel Stat Lactate (Lactic Acid) Stat NT-proBNP (BNP-Adult 18+) Stat Troponin & CK Cardiac Panel Stat RT Consult Eval and Treat Now 09/12/21 15:08 EKG-12 Lead Stat 09/12/21 15:20 COVID19 -Nasal swab/Pre-Proc Stat 09/12/21 16:50 Trop I [Troponin I] Stat Discontinued Medications Albuterol (Albuterol 2.5 Mg/3 Ml Neb (Adult)) 5 mg INH NOW ONE Stop: 09/12/21 15:22 Last Admin: 09/12/21 15:28 Dose: 5 mg Documented by: CTR.[email or web address] Albuterol/Ipratropium (Albuterol/Ipratropium 3 Ml Ampul) 3 ml INH NOW ONE Stop: 09/12/21 15:22 Last Admin: 09/12/21 15:28 Dose: 3 ml Documented by: CTR.TVO Methylprednisolone (Methylprednisolone 125 Mg/2 Ml Vial) 125 mg IV NOW ONE Stop: 09/12/21 16:17 Last Admin: 09/12/21 16:22 Dose: 125 mg Documented by: ATAYLOR Vital Signs Vital signs: Vital Signs - 8 hr 09/12/21 14:42 09/12/21 15:20 09/12/21 15:22 Temperature 98 F Pulse Rate 72 74 70 Respiratory Rate 17 Blood Pressure 169/78 H 165/75 H Pulse Oximetry 95 93 97 09/12/21 15:29 09/12/21 15:30 09/12/21 15:48 Temperature Pulse Rate 59 L 62 68 Respiratory Rate 20 Blood Pressure 148/64 H 152/81 H Pulse Oximetry 93 100 95 09/12/21 16:00 09/12/21 16:30 09/12/21 17:00 Temperature Pulse Rate 65 66 69 Respiratory Rate Blood Pressure 156/79 H Pulse Oximetry 92 95 95 09/12/21 17:30 09/12/21 17:47 09/12/21 17:54 Temperature Pulse Rate 65 74 Respiratory Rate Blood Pressure 140/77 Pulse Oximetry 94 92 MDM - SOB/Dyspnea Lab Data Result diagrams: 09/12/21 14:50 09/12/21 14:50 Labs: Lab Results 09/12/21 09/12/21 09/12/21 Range/Units 14:50 14:50 14:50 WBC 5.3 (4.5-11.0) X10^3/uL RBC 4.40 L (4.5-5.9) X10^6/uL Hgb 14.4 (13.5-17.5) g/dL Hct 42.1 (41-53) % MCV 95.7 (80-100) fL MCH 32.6 (26-34) PG MCHC 34.1 (30-36) % RDW 14.0 (11.6-14.8) % Plt Count 305 (150-400) X10^3/uL Neut % (Auto) 57.8 (50-75) % Lymph % (Auto) 27.2 (25-40) % [place] % (Auto) 8.7 (3-14) % Eos % (Auto) 5.2 H (2-4) % Baso % (Auto) 1.1 (0-2) % Neut # (Auto) 3000 (6369-8812) /uL Lymph # (Auto) 1400 (2298-0865) /uL [place] # (Auto) 500 (0-900) /uL Eos # (Auto) 300 (0-450) /uL Baso # (Auto) 100 (0-100) /uL Sodium 139 (137-145) mmol/L Potassium 3.9 (3.4-5.1) mmol/L Chloride 105 (98-107) mmol/L Carbon Dioxide 27 (22-32) mmol/L BUN 8 L (9-20) mg/dL Creatinine 0.76 (0.66-1.25) mg/dL Estimated GFR > 60.0 (>60) mL/min BUN/Creatinine Ratio 10.5 (6-22) Glucose 128 H (80-110) mg/dL Lactate 1.1 (0.7-2.1) mmol/L Calcium 8.8 (8.4-10.2) mg/dL Total Bilirubin 0.4 (0.2-1.3) mg/dL AST 36 (17-59) IU/L ALT 15 (<50) IU/L Alkaline Phosphatase 68 (38-126) U/L Total Creatine Kinase 491 H (55-170) U/L CK-MB (CK-2) 4.08 H (<2.37) ng/mL CK-MB (CK-2) Rel Index 0.8 L (1.5-5.0) % Troponin I 0.026 (0.01-0.034) ng/mL NT-Pro-B Natriuret Pep 128 H (<125) pg/mL Total Protein 8.4 H (6.3-8.2) g/dL Albumin 4.5 (3.5-5.0) g/dL Globulin 3.9 (1.7-4.1) g/dL Albumin/Globulin Ratio 1.2 (1.0-2.8) SARS-CoV-2 (PCR) (Negative) 09/12/21 09/12/21 Range/Units 15:20 16:50 WBC (4.5-11.0) X10^3/uL RBC (4.5-5.9) X10^6/uL Hgb (13.5-17.5) g/dL Hct (41-53) % MCV (80-100) fL MCH (26-34) PG MCHC (30-36) % RDW (11.6-14.8) % Plt Count (150-400) X10^3/uL Neut % (Auto) (50-75) % Lymph % (Auto) (25-40) % [place] % (Auto) (3-14) % Eos % (Auto) (2-4) % Baso % (Auto) (0-2) % Neut # (Auto) (6316-8978) /uL Lymph # (Auto) (6708-7215) /uL [place] # (Auto) (0-900) /uL Eos # (Auto) (0-450) /uL Baso # (Auto) (0-100) /uL Sodium (137-145) mmol/L Potassium (3.4-5.1) mmol/L Chloride (98-107) mmol/L Carbon Dioxide (22-32) mmol/L BUN (9-20) mg/dL Creatinine (0.66-1.25) mg/dL Estimated GFR (>60) mL/min BUN/Creatinine Ratio (6-22) Glucose (80-110) mg/dL Lactate (0.7-2.1) mmol/L Calcium (8.4-10.2) mg/dL Total Bilirubin (0.2-1.3) mg/dL AST (17-59) IU/L ALT (<50) IU/L Alkaline Phosphatase (38-126) U/L Total Creatine Kinase (55-170) U/L CK-MB (CK-2) (<2.37) ng/mL CK-MB (CK-2) Rel Index (1.5-5.0) % Troponin I 0.031 (0.01-0.034) ng/mL NT-Pro-B Natriuret Pep (<125) pg/mL Total Protein (6.3-8.2) g/dL Albumin (3.5-5.0) g/dL Globulin (1.7-4.1) g/dL Albumin/Globulin Ratio (1.0-2.8) SARS-CoV-2 (PCR) Negative (Negative) Imaging Data Chest x-ray: Radiologist's Impression: PROCEDURE:? XR CHEST 2V ? INDICATIONS:? shortness of breath ? TECHNIQUE:? 2 views of the chest were acquired.? ? COMPARISON:? [facility], CR, XR CHEST 1V, 03/11/2021, 12:39.? [facility], CR, XR CHEST 1 VIEW, 03/13/2021, 11:14. ? FINDINGS:? ? Surgical changes and devices:? None.? ? Lungs and pleura:? Chronic interstitial pulmonary there is mild increased interstitial pulmonary appearance. ? Mediastinum:? Mediastinal contours are normal.? Heart size is normal.? ? Bones and chest wall:? No suspicious bony abnormalities.? Soft tissues appear unremarkable.? ? IMPRESSION:? Mild increased interstitial pulmonary appearance.? This could represent developing airspace disease such as pneumonia.? ? ? Dictated by: Cherelle Stern M.D. on 09/12/2021 at 16:28 ? ? ECG Data Interpretation: Normal sinus rhythm rate 62 NV interval 154 QRS [address] changes partial right bundle anton block noted MDM Narrative Medical decision making narrative: Patient is overall feeling significantly better healed likely with albuterol. He is speaking in full sentences. He previously had TN but he has 2- troponins today no new EKG changes today symptoms are most consistent with an asthma COPD exacerbation. Requesting medicine for his machine. He is given a TD tubing and mask to go with it as well. Discharge Plan Departure Patient Disposition: Home Clinical Impression: Asthma with exacerbation Instructions: Asthma -- Adult Activity Restrictions/Additional Instructions: *You have been diagnosed with asthma exacerbation *What to do: *Continue to take medications as directed Prednisone 40 mg once a day for 5 days start tomorrow Albuterol it her nebulized or inhaler every 4 hours for the next 24 hours while awake *Follow up with your primary care provider in 2-3 days or call [phone] *Return to ER if you should have increasing shortness of breath, chest pain fever or any new, worsening or concerning symptoms Prescriptions: New prednisone 20 mg tablet 40 mg PO DAILY Qty: 10 0RF albuterol sulfate 0.63 mg/3 mL solution for nebulization 0.63 mg INHALATION QID PRN (Reason: shortness of breath or wheezing) Qty: 75 0RF albuterol sulfate 90 mcg/actuation HFA aerosol inhaler 2 puff INHALATION Q4-6H PRN (Reason: shortness of breath or wheezing) Qty: 8.5 0RF No Action lisinopril 20 mg Tablet 20 mg PO DAILY 0RF tamsulosin [Flomax] 0.4 mg Capsule 0.4 mg PO DAILY 0RF amlodipine 10 mg Tablet 10 mg PO DAILY 0RF simvastatin 20 mg Tablet 20 mg PO DAILY 0RF buprenorphine-naloxone [Suboxone] 8-2 mg Tablet, Sublingual 1 tab SUBLINGUAL DAILY 0RF
[2021-09-12 15:55] LABS: COVID19 -Nasal RAPID Negative (Negative)
[2021-09-12] MEDS: methylPREDNISolone 125 MG/2 ML VIAL IV (16:22)
[2021-09-12 17:26] LABS: Troponin I 0.031 ng/mL (0.01-0.034)
== END 2021-09-12 17:57 | disposition home or self-care (01) ==
PROVIDERS: Emergency Provider Emergency Medicine
DX: J45.901 Unspecified asthma with (acute) exacerbation (principal); Z87.891 Personal history of nicotine dependence; Z20.822 Contact with and (suspected) exposure to COVID-19
CPT/HCPCS: 36415; 71046; 80053; 82550; 82553; 83605; 83880; 84484; 85025; 87635; 93005; 93010; 94640; 99284; C9803; J2930; J7613